=== PATIENT | female | born 1955 | race Caucasian/White ===

== ENCOUNTER 2023-07-07 06:30 | Day surgery (SDC) | payer MEDICARE, OTHER ==
[~2023-07-07 06:30] MED LIST: Sodium Chloride 0.9% 10 ML Syringe FLUSH PRN; Sodium Chloride 0.9% 10 ML Syringe FLUSH SCH
[2023-07-07] MEDS: Lactated Ringers 1,000 ML IV SCH (06:45)
[2023-07-07] MEDS ORDERED: Ropivacaine 0.5% 5 MG/ML 30 ML SDV ONE (06:45)
[2023-07-07] MEDS ORDERED: dexmedeTOMIDine HCl 200 MCG/2 ML SDV ONE (06:45)
[2023-07-07] MEDS ORDERED: Midazolam 1 MG/ML 2 ML SDV ONE (06:48)
[2023-07-07] MEDS ORDERED: fentaNYL 100 MCG/2 ML SDV ONE (06:48)
[2023-07-07] MEDS: Clindamycin Phosphate in D5W 900 MG in Premix Bag 1 BAG IV ONE (07:00)
[2023-07-07 07:18] LABS: INR 0.95; PROTHROMBIN TIME 10.2 SECONDS (9.7-12.0)
[2023-07-07 07:19] LABS: PTT,PARTIAL THROMBOPLSTIN TIME 29.3 SECONDS (21.7-31.4)
[2023-07-07] MEDS ORDERED: Propofol 200 MG/20 ML SDV ONE (07:55)
[2023-07-07] MEDS ORDERED: EPINEPHrine 1 MG/ML SDV ONE (07:58)
[2023-07-07] MEDS ORDERED: Dexamethasone 4 MG/ML 5 ML MDV ONE (07:58)
[2023-07-07] MEDS ORDERED: Phenylephrine 1% 10 MG/ML SDV ONE (08:15)
[2023-07-07] MEDS ORDERED: Lactated Ringers 1,000 ML ONE (08:47)
[2023-07-07] MEDS: Tranexamic Acid 1,000 MG/10 ML Vial ONE (09:18)
[2023-07-07] MEDS: Vancomycin 1 GM SDV ONE (09:18)
[2023-07-07] MEDS: Morphine 8 MG, EPINEPHrine 0.3 MG, Cefuroxime 750 MG, Ketorolac 30 MG, Sodium Chloride ... PRN (09:18)
[2023-07-07] MEDS: Bupivacaine 0.25% 10 ML SDV ONE (09:30)
[2023-07-07] MEDS: Triamcinolone Acetonide 40 MG/ML 1 ML SDV ONE (09:30)
[2023-07-07] MEDS ORDERED: Acetaminophen/Codeine 300-30 MG Tab PO PRN (10:49)
[2023-07-07] MEDS: Acetaminophen/Codeine 300-30 MG Tab PO PRN (11:02)
== END 2023-07-07 13:00 | disposition home or self-care (01) ==
LOC: JD.SDS 06:30
PROVIDERS: ATTEND Orthopaedic Surgery
DX: M17.0 Bilateral primary osteoarthritis of knee (principal); I10 Essential (primary) hypertension; E78.00 Pure hypercholesterolemia, unspecified; K21.9 Gastro-esophageal reflux disease without esophagitis; Z79.899 Other long term (current) drug therapy; Z88.5 Allergy status to narcotic agent
CPT/HCPCS: 0055T; 20610; 27447; 36415; 73560; 85610; 85730; 97161; A9270; C1713; C1776; J0171; J0697; J0736; J1100; J1885; J2250; J2270; J2371; J2704; J2795; J3010; J3301; J3370; J3490; J7030; J7120; 01402; 64447